=== PATIENT | female | born 1980 | race African-American/Black ===

== ENCOUNTER 2016-11-17 08:54 | Emergency (ER) | payer OTHER ==
[2016-11-17 09:10] VITALS: BMI 38.6
--- NOTE | 2016-11-17 09:40 | PDOC ---
History of Present Illness <Eduardo Tomlinson - Last Filed: 11/17/16 14:49> - General History Source: Patient Exam Limitations: No Limitations - History of Present Illness Initial Comments: 11/17/16 10:07 Patient a 35 year old female, with a significant past medical history of obesity , HTN, asthma, pneumonia (jan 2015), sleep apnea, eczema, who presents to the emergency department with headache for 1 day. Patient states that the headache is localized to the right side of the head, is throbbing, and radiates behind the right eye and has worsened today. Headache began gradually yesterday while the patient was at home and became worse today. She notes that she had no alleviation of her symptoms of advil and excedrin. She reports associated photophobia. She notes that she took her HTN medication, lisinopril and amlodipine. Currently on her menstrual period. Pt notes previous history of R sided headaches, possibly more so around her menstrual period, but that this headache was stronger than her previous headaches. She denies focal weakness or numbness, fever, chills, nausea, vomiting, SOB, dizziness, no blurry vision or visual changes but patient notes she has been rubbing her eye frequently. <Bindu Carrillo - Last Filed: 11/17/16 14:59> - General Chief Complaint: Headache Stated Complaint: SEVERE HEADACHE/DIZZINESS Time Seen by Provider: 11/17/16 09:10 Past History - Past Medical History Anemia: No Asthma: Yes Cancer: No Cardiac Disorders: No CVA: No COPD: No CHF: No Dementia: No Diabetes: No GI Disorders: No Disorders: No HTN: Yes Hypercholesterolemia: No Liver Disease: No Seizures: No Thyroid Disease: No - Surgical History Abdominal Surgery: No Appendectomy: No Cardiac Surgery: No Cholecystectomy: No Lung Surgery: No Neurologic Surgery: No Orthopedic Surgery: Yes (RIGHT SHOULDER SURGERY) - Suicide/Smoking/Psychosocial Hx Smoking Status: Yes Smoking History: Current every day smoker Have you smoked in the past 12 months: Yes Number of Cigarettes Smoked Daily: 0 Cigars Per Day: 20 Information on smoking cessation initiated: Yes 'Breaking Loose' booklet given: 01/10/16 Hx Alcohol Use: No Drug/Substance Use Hx: Yes (marijuana) Substance Use Type: None Hx Substance Use Treatment: No <Eduardo Tomlinsno - Last Filed: 11/17/16 14:49> <Bindu Carrillo - Last Filed: 11/17/16 14:59> - Past Medical History Allergies/Adverse Reactions: Allergies Allergy/AdvReac Type Severity Reaction Status Date / Time No Known Drug Allergies Allergy Verified 11/17/16 09:11 Home Medications: Ambulatory Orders Amlodipine Besylate [Norvasc -] 10 mg PO DAILY 01/10/16 Lisinopril 5 mg PO DAILY 11/17/16 Review of Systems - Review of Systems Able to Perform ROS?: Yes Comments:: 11/17/16 10:07 GENERAL/CONSTITUTIONAL: No fever or chills. No weakness. HEAD, EYES, EARS, NOSE AND THROAT: No change in vision. No ear pain or discharge. No sore throat. GASTROINTESTINAL: No nausea, vomiting, diarrhea or constipation. GENITOURINARY: No dysuria, frequency, or change in urination. CARDIOVASCULAR: No chest pain or shortness of breath. RESPIRATORY: No cough, wheezing, or hemoptysis. MUSCULOSKELETAL: No joint or muscle swelling or pain. No neck or back pain. SKIN: No rash NEUROLOGIC:+headache. No vertigo, loss of consciousness, or change in strength/ sensation. ENDOCRINE: No increased thirst. No abnormal weight change. HEMATOLOGIC/LYMPHATIC: No anemia, easy bleeding, or history of blood clots. ALLERGIC/IMMUNOLOGIC: No hives or skin allergy. <Bindu Carrillo - Last Filed: 11/17/16 14:59> *Physical Exam - Vital Signs Last Vital Signs Temp Pulse Resp BP Pulse Ox 96.4 F L 74 18 154/97 100 11/17/16 08:54 11/17/16 08:54 11/17/16 08:54 11/17/16 08:54 11/17/16 08:54 <Eduardo Tomlinson - Last Filed: 11/17/16 14:49> - Vital Signs Last Vital Signs Temp Pulse Resp BP Pulse Ox 96.4 F L 74 18 154/97 100 11/17/16 08:54 11/17/16 08:54 11/17/16 08:54 11/17/16 08:54 11/17/16 08:54 - Physical Exam Comments: 11/17/16 10:19 GENERAL: Awake, alert, and fully oriented, in no acute distress HEAD: No signs of trauma. EYES: PERRLA, EOMI, sclera anicteric, +injected sclera OD. Vision OU 20/20. No temporal ttp. No papilledema on fundoscopic exam. ENT: Auricles normal inspection, hearing grossly normal, nares patent, oropharynx clear without exudates. Moist mucosa NECK: Normal ROM, supple, no lymphadenopathy, JVD, or masses LUNGS: Breath sounds equal, clear to auscultation bilaterally. No wheezes, and no crackles HEART: Regular rate and rhythm, normal S1 and S2, no murmurs, rubs or gallops ABDOMEN: Soft, nontender, normoactive bowel sounds. No guarding, no rebound. No masses EXTREMITIES: Normal range of motion, no edema. No clubbing or cyanosis. No cords, erythema, or tenderness BACK: No midline spinal tendernes in cervial/throacic/lumbar region NEUROLOGICAL: Normal speech, cranial nerves intact, negative pronator drift, 5/ 5 strength in all 4 extremities, normal sensation to light touch in all 4 extremities, normal cerebellar exam, normal gait, normal reflexes and tone SKIN: Warm, Dry, normal turgor, no rashes or lesions noted. <Bindu Carrillo - Last Filed: 11/17/16 14:59> Heart Score/ECG Review #1 11/17/16 10:29 Normal sinus rhythm at 64 bpm Normal axis intervals No ST elevation Isolated T wave inversion in lead 3 #2 11/17/16 10:46 Repeat ECG Sinus bradycardia rate of 59 Normal axis Normal intervals no ST elevations Isolated T wave inversions in lead 3 No changes to previous ECG. <Bindu Carrillo - Last Filed: 11/17/16 14:59> ED Treatment Course - LABORATORY CBC & Chemistry Diagram: 11/17/16 09:50 11/17/16 11:25 <Eduardo Tomlinson - Last Filed: 11/17/16 14:49> - LABORATORY CBC & Chemistry Diagram: 11/17/16 09:50 11/17/16 11:25 - ADDITIONAL ORDERS Additional order review: 11/17/16 09:50 RBC 5.39 H MCV 80.7 MCHC 32.5 RDW 15.5 MPV 8.9 Neutrophils % 70.3 Lymphocytes % 19.4 D Monocytes % 5.2 Eosinophils % 4.2 D Basophils % 0.9 D <Bindu Carrillo - Last Filed: 11/17/16 14:59> Medical Decision Making - Medical Decision Making 11/17/16 10:00 36yo F hx headaches, HTN, obesity p/w 1 day of gradual onset headache. Vitals notable for HTN (pt states her BP is usually in the 180s). Exam with normal vision, and normal neurologic exam. Likely migraine given 1 sided nature, occurrence around menstrual cycle, photophobia and normal physical exam. Also on ddx is tension headache. Unlikely SAH given no sudden onset of pain, no neurological deficits. Pseudotumor also a consideration given the patient's obesity, age but she has no papilledema on exam and normal vision. -reglan/tylenol/ivf -basic labs -UPT -reassess 11/17/16 10:44 Pt c/o R sided CP s/p reglan for 1 minute that resolved on its own. Repeat EKG unchanged and non ischemic. No CP currently, will observe. 11/17/16 13:23 Erythema to R eye resolved, maybe was red previously as pt said she had been rubbing her eyes. Headache improved but still present. UPT negative. Ordered pt for more fluids, magnesium, and toradol. Will re-evaluate. 11/17/16 14:49 Pt reports headache has resolved and wishes to go home. Likely migraine. Discussed with the patient that she will need a work up for her headaches with a neurologist to ensure there is no other cause such as a mass or vascular lesion causing her headaches. Pt expresses understanding. I discussed the physical exam findings, ancillary test results and final diagnoses with the patient. I answered all of the patient's questions. The patient was satisfied with the care received and felt comfortable with the discharge plan and treatment plan. The patient will call their primary care physician within 24 hours to arrange follow-up and will return to the Emergency Department with any new, persistent or worsening symptoms. <Eduardo Tomlinson - Last Filed: 11/17/16 14:49> *DC/Admit/Observation/Transfer - Attestations Physician Attestion: 11/17/16 14:52 I, Dr. Eduardo Tomlinson MD, attest that this document has been prepared under my direction and personally reviewed by me in its entirety. I further attest, that it accurately reflects all work, treatment, procedures and medical decision -making performed by me. <Eduardo Tomlinson - Last Filed: 11/17/16 14:49> - Attestations Scribe Attestion: 11/17/16 10:07 Documentation prepared by SOHEILA Bush, acting as medical records clerk for Eduardo Tomlinson MD. <Bindu Carrillo - Last Filed: 11/17/16 14:59> Diagnosis at time of Disposition: Headache Qualifiers: Headache type: unspecified Headache chronicity pattern: unspecified pattern Intractability: not intractable Qualified Code(s): R51 - Headache - Discharge Dispostion Disposition: HOME Condition at time of disposition: Stable - Referrals Referrals: Bala Mejia MD [Primary Care Provider] - - Patient Instructions Printed Discharge Instructions: DI for Headache Additional Instructions: Follow up with your primary care doctor within 1 week. Have your primary care doctor, as we discussed, refer you to a neurologist for your headaches within 1- 2 weeks. Return to the emergency department immediately for any new or concerning symptoms or if your symptoms get worse. Thank you for coming to the Emergency Department today for your care. It was a pleasure to see you today. Please note that your evaluation is INCOMPLETE until you follow-up with your doctor.
[2016-11-17] MEDS ORDERED: ACETAMINOPHEN 500 MG TABLET (FP) PO ONE (09:44)
[2016-11-17] MEDS ORDERED: SODIUM CHLORIDE 0.9% 500 ML INFUS.BAG IV ONE ×2 (09:44→12:38)
[2016-11-17] MEDS ORDERED: METOCLOPRAMIDE HCL INJECTION 10 MG/2 ML VIAL IVPB ONE (09:45)
[2016-11-17 10:01] LABS: BASOPHIL 0.9 % (0-2.0); EOSINOPHIL 4.2 % (0-4.5); MCH 26.2 pg (25.7-33.7); MCHC 32.5 g/dl (32.0-36.0); MEAN CELL VOLUME 80.7 fl (80-96); MEAN PLT VOLUME 8.9 fl (7.5-11.1); NEUTROPHILS 70.3 % (42.8-82.8); PLATELET COUNT 233 K/MM3 (134-434); RDW 15.5 % (11.6-15.6); WHITE BLOOD COUNT 14.8 K/mm3 (4.0-10.0)
[2016-11-17] MEDS ORDERED: ACETAMINOPHEN 325 MG TABLET (FP) ONE (10:09)
[2016-11-17] MEDS ORDERED: METOCLOPRAMIDE HCL INJECTION 10 MG/2 ML VIAL ONE (10:09)
[2016-11-17 11:52] LABS: ALBUMIN 3.5 g/dl (3.4-5.0); ALK PHOS 143 U/L (45-117); ANION GAP 5 (8-16); BILIRUBIN,TOTAL 0.6 mg/dL (0.2-1.0); CALCIUM 8.6 mg/dL (8.5-10.1); CO2 27 mmol/L (21-32); CREATININE 0.9 mg/dL (0.55-1.02); GLUCOSE,RANDOM 92 mg/dL (74-106); SGOT/AST 13 U/L (15-37); SGPT/ALT 21 U/L (12-78); TOT PROT 6.7 g/dl (6.4-8.2)
[2016-11-17] MEDS ORDERED: MAGNESIUM SULF 50% (8.12 MEQ/2 ML-1 GM VIAL) IVPB ONE (12:35)
[2016-11-17] MEDS ORDERED: KETOROLAC TROMETHAMINE 15 MG/ML VIAL IVPUSH ONE (12:40)
[2016-11-17] MEDS ORDERED: MAGNESIUM SULF 50% (8.12 MEQ/2 ML-1 GM VIAL) ONE (12:54)
[2016-11-17] MEDS ORDERED: KETOROLAC TROMETHAMINE 15 MG/ML VIAL ONE (12:55)
--- NOTE | 2016-11-17 14:28 | EKG ---
Test Reason : Blood Pressure : / mmHG Vent. Rate : 064 BPM Atrial Rate : 064 BPM P-R Int : 186 ms QRS Dur : 086 ms QT Int : 396 ms P-R-T Axes : 025 038 019 degrees QTc Int : 408 ms NORMAL SINUS RHYTHM NORMAL ECG WHEN COMPARED WITH ECG OF 01-OCT-2015 16:19, VENT. RATE HAS DECREASED BY 45 BPM Confirmed by OSMIN VELÁZQUEZ MD ([id number]) on 11/17/2016 2:28:38 PM Referred By: Confirmed By:OSMIN VELÁZQUEZ MD
[2016-11-17 15:20] VITALS: BP 154/94; PULSE 75; TEMP 98.6
== END 2016-11-17 15:22 | disposition home or self-care (01) ==
LOC: JER 08:54
PROC: 3E0333Z Introduction of Anti-inflammatory into Peripheral Vein, Percutaneous Approach (ICD-10-PCS; principal; 2016-11-17)
PROC: 3E033GC Introduction of Other Therapeutic Substance into Peripheral Vein, Percutaneous Approach (ICD-10-PCS; 2016-11-17)
PROC: 3E033GC Introduction of Other Therapeutic Substance into Peripheral Vein, Percutaneous Approach (ICD-10-PCS; 2016-11-17)
PROC: 3E033GC Introduction of Other Therapeutic Substance into Peripheral Vein, Percutaneous Approach (ICD-10-PCS; 2016-11-17)
DX: R51 Headache (principal); I10 Essential (primary) hypertension; G47.30 Sleep apnea, unspecified; L30.9 Dermatitis, unspecified; E66.9 Obesity, unspecified; Z68.38 Body mass index [BMI] 38.0-38.9, adult; F17.210 Nicotine dependence, cigarettes, uncomplicated
CPT/HCPCS: 36415; 80053; 84703; 85025; 93005; 93010; 99282-25

== ENCOUNTER 2017-01-23 09:49 | Emergency (ER) | payer OTHER ==
[2017-01-23 10:03] VITALS: BP 143/104; PULSE 83; TEMP 98.2; BMI 38.0
--- NOTE | 2017-01-23 10:36 | PDOC ---
History of Present Illness - General Chief Complaint: Vaginal Bleeding Stated Complaint: VAGINAL BLEEDING Time Seen by Provider: 01/23/17 10:31 History Source: Patient - History of Present Illness Timing/Duration: reports: constant Quality: reports: cramping Past History - Past Medical History Allergies/Adverse Reactions: Allergies Allergy/AdvReac Type Severity Reaction Status Date / Time No Known Drug Allergies Allergy Verified 01/23/17 10:03 Home Medications: Ambulatory Orders Amlodipine Besylate [Norvasc -] 10 mg PO DAILY 01/10/16 Lisinopril 5 mg PO DAILY 11/17/16 Anemia: No Asthma: Yes Cancer: No Cardiac Disorders: No CVA: No COPD: No CHF: No DVT: No Dementia: No Diabetes: No GI Disorders: No Disorders: No HTN: Yes Hypercholesterolemia: No Liver Disease: No Seizures: No Thyroid Disease: No - Surgical History Abdominal Surgery: No Appendectomy: No Cardiac Surgery: No Cholecystectomy: No Lung Surgery: No Neurologic Surgery: No Orthopedic Surgery: Yes (RIGHT SHOULDER SURGERY) - Suicide/Smoking/Psychosocial Hx Smoking Status: Yes Smoking History: Never smoked Have you smoked in the past 12 months: Yes Number of Cigarettes Smoked Daily: 0 Cigars Per Day: 20 Information on smoking cessation initiated: No 'Breaking Loose' booklet given: 01/10/16 Hx Alcohol Use: No Drug/Substance Use Hx: No Substance Use Type: None Hx Substance Use Treatment: No Review of Systems - Review of Systems Constitutional: No: Chills, Fever ABD/GI: Yes: Abdominal cramping. No: Nausea, Vomiting : No: Dysuria, Discharge *Physical Exam - Vital Signs Last Vital Signs Temp Pulse Resp BP Pulse Ox 98.2 F 83 19 143/104 100 01/23/17 10:01 01/23/17 10:01 01/23/17 10:01 01/23/17 10:01 01/23/17 10:01 - Physical Exam General Appearance: Yes: Appropriately Dressed. No: Apparent Distress HEENT: positive: Normal Voice Neck: positive: Supple Respiratory/Chest: negative: Respiratory Distress Female Pelvic Exam: positive: cervical os closed, normal adnexa, vaginal bleeding (trace vag bleed). negative: CMT Gastrointestinal/Abdominal: positive: Tender (to mid suprapubic area, NT over mcburney), Soft Integumentary: positive: Dry, Warm Neurologic: positive: Fully Oriented, Alert, Normal Mood/Affect ED Treatment Course - LABORATORY CBC & Chemistry Diagram: 01/23/17 10:42 Medical Decision Making - Medical Decision Making 01/23/17 10:34 36-year-old female, morbidly obese, hypertension, here with irregular vag bleed. Patient states she got her normal menses 12 days ago, but instead of lasting the usual 5 days, she has continued to bleed for 12 days now. Reports that she is not bleeding heavily and using ~1 pad/day currently. Also reports some pain in her vagina as per patient. No dizziness, weakness, nausea, vomiting, fever or chills. No history of similar complaints in the past. Not on control. States she does not think she is but has not checked a home test See exam Irreg vag bleed Well jeff and stable in ED R/o preg, ? fibroid in the past -cbc -upreg -anticipate dc w/ timber incisor operator f/u for further eval 01/23/17 11:45 Uprg neg. White count 16 of unclear etiology as no sign of infection on exam and non-tender over McBurney's. Case discussed with Dr. Rea who recommends sending off a UA and if negative, would not proceed with further intervention at this time as pt well jeff and afebrile w/ no s/o infection. Will give strict return precautions on discharge 01/23/17 12:35 Ua neg for infection. Pt remains well jeff and in NAD. Will dc w/ strict return precautions and WELL LOGGING MUD ANALYSIS CAPTAIN f/u *DC/Admit/Observation/Transfer Diagnosis at time of Disposition: DUB (dysfunctional uterine bleeding) - Discharge Dispostion Disposition: HOME Condition at time of disposition: Good - Referrals Referrals: Bala Mejia MD [Primary Care Provider] - - Patient Instructions Printed Discharge Instructions: DI for Vaginal Bleeding Additional Instructions: You were not today and your blood count was normal. Please follow-up with your WELL LOGGING MUD ANALYSIS CAPTAIN for further evaluation If symptoms worsen, return to ED - Post Discharge Activity
[2017-01-23] MEDS ORDERED: IBUPROFEN 400 MG TABLET (FP) PO ONE ×2 (10:45→10:51)
[2017-01-23 10:57] LABS: BASOPHIL 0.8 % (0-2.0); EOSINOPHIL 3.7 % (0-4.5); MCH 26.2 pg (25.7-33.7); MCHC 32.1 g/dl (32.0-36.0); MEAN CELL VOLUME 81.6 fl (80-96); MEAN PLT VOLUME 8.7 fl (7.5-11.1); PLATELET COUNT 245 K/MM3 (134-434); RDW 14.9 % (11.6-15.6); WHITE BLOOD COUNT 16.5 K/mm3 (4.0-10.0)
[2017-01-23 12:26] LABS: URINE APPEARANCE CLEAR; URINE BILIRUBIN NEGATIVE (NEGATIVE); URINE BLOOD 1+ (NEGATIVE); URINE COLOR LTYELLOW; URINE GLUCOSE (UA) NEGATIVE (NEGATIVE); URINE KETONE NEGATIVE (NEGATIVE); URINE NITRITE NEGATIVE (NEGATIVE); URINE PROTEIN NEGATIVE (NEGATIVE); URINE UROBILINOGEN NEGATIVE mg/dL (0.2-1.0)
[2017-01-23 12:29] LABS: URINE RBC <1 /hpf (0-3); URINE WBC NONE SEEN /hpf (3-5)
[2017-01-23 12:30] LABS: URINE MUCUS RARE
[2017-01-23 17:51] LABS: URINE LEUK ESTERASE Negative (NEGATIVE)
== END 2017-01-23 13:07 | disposition home or self-care (01) ==
LOC: JER 09:49
DX: N93.8 Other specified abnormal uterine and vaginal bleeding (principal); I10 Essential (primary) hypertension; E66.9 Obesity, unspecified; Z68.38 Body mass index [BMI] 38.0-38.9, adult
CPT/HCPCS: 36415; 81003; 81015; 84703; 85025; 99284-25

== ENCOUNTER 2017-04-26 22:29 | Emergency (ER) | payer OTHER ==
[2017-04-26 22:45] VITALS: BP 151/80; PULSE 88; TEMP 97.7; BMI 38.9
--- NOTE | 2017-04-26 23:50 | PDOC ---
History of Present Illness - General History Source: Patient Exam Limitations: No Limitations - History of Present Illness Initial Comments: 04/27/17 00:15 The patient is a 36 year old female, with a significant past medical history of HTN (recently restarted her medication) and asthma, who presents to the emergency department with body aches, generalized weakness, headache, dizziness , abdominal pain, nausea and vomiting. She reports that she doesn't exercise routinely but has started again for the past 3 days and notes that her body aches may be due to the recent exercises. She reports that she was eating multiple different types of lunches at and event earlier today and thats when she her abdominal pain started and she had her emesis episode. She does note that she has been taking a detox tea which has caused her stool to be soft. She reports that her headache ranges from mild to moderate, without radiation. She notes that light exacerbates her pain. The patient denies chest pain, shortness of breath, fever, chills, and constipation. Denies dysuria, frequency, urgency and hematuria. Allergies: None Past surgical history: RIGHT SHOULDER SURGERY Social history: Black and Mild cigars, alcohol use. <Diallo Mazariegos - Last Filed: 04/27/17 00:15> - General History Source: Patient Exam Limitations: No Limitations <Maggy Zamorano - Last Filed: 04/27/17 03:18> - General Chief Complaint: Lightheaded Stated Complaint: DIZZINESS Time Seen by Provider: 04/26/17 23:49 Past History <Diallo Mazariegos - Last Filed: 04/27/17 00:15> - Past Medical History Anemia: No Asthma: Yes Cancer: No Cardiac Disorders: No CVA: No COPD: No CHF: No DVT: No Dementia: No Diabetes: No GI Disorders: No Disorders: No HTN: Yes Hypercholesterolemia: No Liver Disease: No Seizures: No Thyroid Disease: No - Surgical History Abdominal Surgery: No Appendectomy: No Cardiac Surgery: No Cholecystectomy: No Lung Surgery: No Neurologic Surgery: No Orthopedic Surgery: Yes (RIGHT SHOULDER SURGERY) - Reproductive History (#): 2 Para: 1 Therapeutic (s) & number: Yes - Suicide/Smoking/Psychosocial Hx Smoking Status: Yes Smoking History: Current every day smoker Have you smoked in the past 12 months: No Number of Cigarettes Smoked Daily: 3 Cigars Per Day: 20 Information on smoking cessation initiated: No 'Breaking Loose' booklet given: 01/10/16 Hx Alcohol Use: Yes Drug/Substance Use Hx: No Substance Use Type: None Hx Substance Use Treatment: No <Maggy Zamorano - Last Filed: 04/27/17 03:18> - Past Medical History Allergies/Adverse Reactions: Allergies Allergy/AdvReac Type Severity Reaction Status Date / Time No Known Drug Allergies Allergy Verified 01/23/17 10:03 Home Medications: Ambulatory Orders Amlodipine Besylate [Norvasc -] 10 mg PO DAILY 01/10/16 Lisinopril 5 mg PO DAILY 11/17/16 Butalb/Acetaminophen/Caffeine [Fioricet 50-300-40 mg Capsule] 1 each PO BID PRN #14 capsule 04/27/17 Ondansetron HCl [Zofran] 4 mg PO BID PRN #14 tablet 04/27/17 Review of Systems - Review of Systems Able to Perform ROS?: Yes Comments:: 04/27/17 00:15 GENERAL/CONSTITUTIONAL: (+) Generalized weakness, body aches. No fever or chills. HEAD, EYES, EARS, NOSE AND THROAT: No change in vision. No ear pain or discharge. No sore throat. CARDIOVASCULAR: No chest pain or shortness of breath RESPIRATORY: No cough, wheezing, or hemoptysis. GASTROINTESTINAL: (+) Abdominal pain, nausea and vomiting. No diarrhea or constipation. GENITOURINARY: No dysuria, frequency, or change in urination. MUSCULOSKELETAL: No joint or muscle swelling or pain. No neck or back pain. SKIN: No rash NEUROLOGIC: (+) headache, vertigo. No loss of consciousness, or change in strength/sensation. ENDOCRINE: No increased thirst. No abnormal weight change HEMATOLOGIC/LYMPHATIC: No anemia, easy bleeding, or history of blood clots. ALLERGIC/IMMUNOLOGIC: No hives or skin allergy. <Diallo Mazariegos - Last Filed: 04/27/17 00:15> *Physical Exam - Vital Signs Last Vital Signs Temp Pulse Resp BP Pulse Ox 97.7 F 88 18 151/80 99 04/26/17 22:35 04/26/17 22:35 04/26/17 22:35 04/26/17 22:35 04/26/17 22:35 - Physical Exam Comments: 04/27/17 00:17 GENERAL: Awake, alert, and fully oriented, in no acute distress. (+) Morbidly obese. HEAD: No signs of trauma, normocephalic, atraumatic EYES: PERRLA, EOMI, sclera anicteric, conjunctiva clear ENT: Auricles normal inspection, hearing grossly normal, nares patent, oropharynx clear without exudates. Moist mucosa NECK: Normal ROM, supple, no lymphadenopathy, JVD, or masses LUNGS: No distress, speaks full sentences, clear to auscultation bilaterally HEART: Regular rate and rhythm, normal S1 and S2, no murmurs, rubs or gallops, peripheral pulses normal and equal bilaterally. ABDOMEN: (+) Epigastirc tenderness. Soft, normoactive bowel sounds. No guarding , no rebound. No masses EXTREMITIES : Normal inspection, Normal range of motion, no edema. No clubbing or cyanosis. NEUROLOGICAL: Cranial nerves II through XII grossly intact. Normal speech, normal gait, no focal sensorimotor deficits SKIN: Warm, Dry, normal turgor, no rashes or lesions noted <Diallo Mazariegos - Last Filed: 04/27/17 00:15> - Vital Signs Last Vital Signs Temp Pulse Resp BP Pulse Ox 97.7 F 88 18 151/80 99 04/26/17 22:35 04/26/17 22:35 04/26/17 22:35 04/26/17 22:35 04/26/17 22:35 <Maggy Zamorano - Last Filed: 04/27/17 03:18> ED Treatment Course - LABORATORY CBC & Chemistry Diagram: 04/27/17 00:24 04/27/17 00:24 <Maggy Zamorano - Last Filed: 04/27/17 03:18> Medical Decision Making - Medical Decision Making 04/27/17 01:42 Ms Regalado is a 36 yo F presenting to the ER with a complaint of : 1) nausea and vomiting which began 3 days ago after eating at a lunch bar, no other ill contacts. Pt had fish but states it was well cooked Pt states no one else that ate there was ill. No diarrhea. Pt has noted epigastric pain. No fevers or chills 2) Headache: which has been present constantly for > 3 days, similar to headache she had a few months ago 3) Body aches: EKG: SR rate of 81 bpm, [place] nml, No ST elevations or depressions, st depression III Laboratory Tests 04/27/17 04/27/17 00:24 00:24 WBC 14.2 H Hgb 13.3 Hct 40.3 Plt Count 242 Sodium 142 Potassium 4.1 Chloride 110 H Carbon Dioxide 25 BUN 13 Creatinine 0.8 Total Bilirubin 0.3 D AST 35 ALT 41 Total Amylase 72 Lipase 200 04/27/17 01:42 04/27/17 01:46 04/27/17 01:53 04/27/17 02:02 Pt states headache has improved nausea has improved but she would not eat now Will give toradol Will re assess 04/27/17 02:38 04/27/17 02:38 Laboratory Tests 04/27/17 02:20 Urine Blood Negative Urine Nitrite Negative Ur Leukocyte Esterase Negative 04/27/17 03:07 Laboratory Tests 04/27/17 00:24 Creatine Kinase Index 0.1 CK-MB (CK-2) < 1.000 CK elevated Pt has been doing excessive exercise recently Pt hydrated while in the ER CR normal Will ask pt to limit excessive exercise Take excedrine migraine for headache Pt can take zofran from nausea Follow up with PMD return to the ER for any other concerns or complaints Clinical impression: nausea, gastritis, initial presentation Headache, initial presentation <Maggy Zamorano - Last Filed: 04/27/17 03:18> *DC/Admit/Observation/Transfer - Attestations Scribe Attestion: 04/27/17 00:18 Documentation prepared by Diallo Mazariegos, acting as medical record specialist for Maggy Zamorano MD <Diallo Mazariegos - Last Filed: 04/27/17 00:15> - Discharge Dispostion Admit: No <Maggy aZmorano - Last Filed: 04/27/17 03:18> Diagnosis at time of Disposition: Nausea & vomiting Qualifiers: Vomiting type: unspecified Vomiting Intractability: non-intractable Qualified Code(s): R11.2 - Nausea with vomiting, unspecified - Discharge Dispostion Disposition: HOME Condition at time of disposition: Stable - Referrals Referrals: Bala Mejia MD [Primary Care Provider] - - Patient Instructions Printed Discharge Instructions: DI for Nausea -- Adult, DI for Headache Additional Instructions: Ms regalado Thanks for coming in to the ER today Please take Zofran if you feel nauseous Please take excedrin Migraine for headache (per label instructions) You can take Fiorecet for more severe headaches If you have fevers, headache which is not controlled by medications, nausea, vomiting which will not stop, weakness, confusion, please return to the ER for re evaluation. - Post Discharge Activity
[2017-04-27] MEDS ORDERED: SODIUM CHLORIDE 1,000 ML IV STA (00:05)
[2017-04-27] MEDS ORDERED: METOCLOPRAMIDE HCL INJECTION 10 MG/2 ML VIAL IVPUSH ONE (00:06)
[2017-04-27] MEDS ORDERED: FAMOTIDINE 20 MG/50 ML IVPB 20 MG/50 ML MG IVPB ONE ×2 (00:06→00:12)
[2017-04-27] MEDS ORDERED: METOCLOPRAMIDE HCL INJECTION 10 MG/2 ML VIAL ONE (00:10)
[2017-04-27 00:28] LABS: BASO % 1.2 % (0-2.0); EOS % 4.9 % (0-4.5); HEMATOCRIT 40.3 % (32.4-45.2); HEMOGLOBIN 13.3 GM/dL (10.7-15.3); LYMPH % 23.5 % (8-40); MCH 26.7 pg (25.7-33.7); MEAN PLT VOLUME 9.2 fl (7.5-11.1); MONO % 5.8 % (3.8-10.2); NEUT % 64.6 % (42.8-82.8); PLATELET COUNT 242 K/MM3 (134-434); RBC 4.97 M/mm3 (3.60-5.2); RDW 15.2 % (11.6-15.6); WHITE BLOOD COUNT 14.2 K/mm3 (4.0-10.0)
[2017-04-27 00:55] LABS: ALBUMIN 3.3 g/dl (3.4-5.0); ALK PHOS 144 U/L (45-117); AMYLASE 72 U/L (25-115); ANION GAP 7 (8-16); BILIRUBIN,TOTAL 0.3 mg/dL (0.2-1.0); BLOOD UREA NITROGEN 13 mg/dL (7-18); CALCIUM 8.7 mg/dL (8.5-10.1); CHLORIDE 110 mmol/L (98-107); CO2 25 mmol/L (21-32); CREATININE 0.8 mg/dL (0.55-1.02); GLUCOSE,RANDOM 98 mg/dL (74-106); LIPASE 200 U/L (73-393); POTASSIUM 4.1 mmol/L (3.5-5.1); SGOT/AST 35 U/L (15-37); SGPT/ALT 41 U/L (12-78); SODIUM 142 mmol/L (136-145); TOT PROT 6.6 g/dl (6.4-8.2)
[2017-04-27] MEDS ORDERED: KETOROLAC TROMETHAMINE 30 MG/1 ML VIAL IVPUSH ONE (02:02)
[2017-04-27 02:32] LABS: URINE APPEARANCE SLCLOUDY; URINE BILIRUBIN NEGATIVE (NEGATIVE); URINE BLOOD NEGATIVE (NEGATIVE); URINE COLOR LTYELLOW; URINE GLUCOSE (UA) NEGATIVE (NEGATIVE); URINE KETONE NEGATIVE (NEGATIVE); URINE LEUK ESTERASE NEGATIVE (NEGATIVE); URINE NITRITE NEGATIVE (NEGATIVE); URINE PROTEIN NEGATIVE (NEGATIVE); URINE UROBILINOGEN NEGATIVE mg/dL (0.2-1.0)
[2017-04-27] MEDS ORDERED: KETOROLAC TROMETHAMINE 30 MG/1 ML VIAL ONE (02:47)
--- NOTE | 2017-04-27 14:38 | EKG ---
Test Reason : Blood Pressure : / mmHG Vent. Rate : 081 BPM Atrial Rate : 081 BPM P-R Int : 178 ms QRS Dur : 080 ms QT Int : 374 ms P-R-T Axes : 052 043 029 degrees QTc Int : 434 ms NORMAL SINUS RHYTHM POSSIBLE LEFT ATRIAL ENLARGEMENT BORDERLINE ECG WHEN COMPARED WITH ECG OF 17-NOV-2016 09:24, NO SIGNIFICANT CHANGE WAS FOUND Confirmed by OSMIN VELÁZQUEZ MD ([id number]) on 04/27/2017 2:37:57 PM Referred By: Confirmed By:OSMIN VELÁZQUEZ MD
== END 2017-04-27 03:19 | disposition home or self-care (01) ==
LOC: JER 22:29
PROC: 3E033GC Introduction of Other Therapeutic Substance into Peripheral Vein, Percutaneous Approach (ICD-10-PCS; principal; 2017-04-26)
PROC: 3E0333Z Introduction of Anti-inflammatory into Peripheral Vein, Percutaneous Approach (ICD-10-PCS; 2017-04-26)
PROC: 3E033GC Introduction of Other Therapeutic Substance into Peripheral Vein, Percutaneous Approach (ICD-10-PCS; 2017-04-26)
DX: R51 Headache (principal); R11.2 Nausea with vomiting, unspecified
CPT/HCPCS: 36415; 70450-TC; 80053; 81003; 82150; 82550; 82553; 83690; 84484; 84703; 85025; 87086; 93005; 93010; 99282-25

== ENCOUNTER 2017-05-16 08:40 | Emergency (ER) | payer OTHER ==
[2017-05-16 08:48] VITALS: BP 141/70; PULSE 89; TEMP 98.2; BMI 38.6
--- NOTE | 2017-05-16 09:41 | PDOC ---
History of Present Illness - General Chief Complaint: Eye Problem Stated Complaint: EYE PAIN Time Seen by Provider: 05/16/17 09:34 History Source: Patient Exam Limitations: No Limitations - History of Present Illness Initial Comments: 05/16/17 09:38 CHIEF COMPLAINT: Bilateral itchy watery eyes HISTORY OF PRESENT ILLNESS: She currently on no medication presents with bilateral watery itchy eyes. Patient denies any new lotions or detergents, no new makeup. No new mascara. Patient reports using a drop from her stepfather, name of medication is unknown. REVIEW OF SYSTEMS: GENERAL/CONSTITUTIONAL: No fever or chills. No weakness. No weight change. HEAD, EYES, EARS, NOSE AND THROAT: No change in vision. Yellow drainage from bilateral eyes this morning. No ear pain or discharge. No sore throat. RESPIRATORY: No cough, wheezing, or hemoptysis. SKIN : No rash or easy bruising. NEUROLOGIC: No headache, vertigo, loss of consciousness, or loss of sensation. HEMATOLOGIC/LYMPHATIC: No lymphadenopathy ALLERGIC/IMMUNOLOGIC: No hives or skin allergy. No latex allergy. PHYSICAL EXAM: GENERAL: The patient is awake, alert, and fully oriented, in no acute distress. HEAD: Normal with no signs of trauma. EYES: Pupils equal, round and reactive to light, extraocular movements intact, sclera anicteric, conjunctiva not injected, after fluorescein staining, no corneal abrasion noted. ENT: Ears normal, nares patent, oropharynx clear without exudates. Moist mucous membranes. NECK: Normal range of motion, supple without lymphadenopathy, JVD, or masses. LUNGS: Breath sounds equal, clear to auscultation bilaterally. No wheezes, and no crackles. NEUROLOGICAL: Cranial nerves II through XII grossly intact. Normal speech, normal gait. SKIN: No erythema no facial edema. Warm, Dry, normal turgor, no rashes or lesions noted. 05/16/17 09:49 05/16/17 09:52 Past History - Past Medical History Allergies/Adverse Reactions: Allergies Allergy/AdvReac Type Severity Reaction Status Date / Time No Known Drug Allergies Allergy Verified 05/16/17 08:48 Home Medications: Ambulatory Orders Amlodipine Besylate [Norvasc -] 10 mg PO DAILY 01/10/16 Lisinopril 5 mg PO DAILY 11/17/16 Butalb/Acetaminophen/Caffeine [Fioricet 50-300-40 mg Capsule] 1 each PO BID PRN #14 capsule 04/27/17 Ondansetron HCl [Zofran] 4 mg PO BID PRN #14 tablet 04/27/17 Ketotifen Fumarate [Zaditor] 1 drop OU BID #1 bottle 05/16/17 Polymyxin B Sulfate/Tmp [Polytrim Opthalmic Solution -] 1 drop OU Q6H #1 bottle 05/16/17 Anemia: No Asthma: Yes Cancer: No Cardiac Disorders: No CVA: No COPD: No CHF: No DVT: No Dementia: No Diabetes: No GI Disorders: No Disorders: No HTN: Yes Hypercholesterolemia: No Liver Disease: No Seizures: No Thyroid Disease: No - Surgical History Abdominal Surgery: No Appendectomy: No Cardiac Surgery: No Cholecystectomy: No Lung Surgery: No Neurologic Surgery: No Orthopedic Surgery: Yes (RIGHT SHOULDER SURGERY) - Reproductive History (#): 2 Para: 1 Therapeutic (s) & number: Yes - Suicide/Smoking/Psychosocial Hx Smoking Status: Yes Smoking History: Never smoked Have you smoked in the past 12 months: No Number of Cigarettes Smoked Daily: 3 If you are a former smoker, when did you quit?: unk Cigars Per Day: 20 Information on smoking cessation initiated: No 'Breaking Loose' booklet given: 01/10/16 Hx Alcohol Use: No Drug/Substance Use Hx: No Substance Use Type: None Hx Substance Use Treatment: No *Physical Exam - Vital Signs Last Vital Signs Temp Pulse Resp BP Pulse Ox 98.2 F 89 18 141/70 99 05/16/17 08:46 05/16/17 08:46 05/16/17 08:46 05/16/17 08:46 05/16/17 08:46 Medical Decision Making - Medical Decision Making 05/16/17 09:53 A/P: Patient with itchy, tearing, bilateral eyes. Allergic conjunctivitis will DC patient on Polytrim and Zaditor, follow-up with ophthalmology *DC/Admit/Observation/Transfer Diagnosis at time of Disposition: Allergic conjunctivitis Qualifiers: Laterality: bilateral Qualified Code(s): H10.13 - Acute atopic conjunctivitis, bilateral - Discharge Dispostion Disposition: HOME Condition at time of disposition: Stable Admit: No - Prescriptions Prescriptions: Ketotifen Fumarate [Zaditor] 1 drop OU BID #1 bottle Polymyxin B Sulfate/Tmp [Polytrim Opthalmic Solution -] 1 drop OU Q6H #1 bottle - Referrals Referrals: Bhavin Cristobal [Staff Physician] - - Patient Instructions Additional Instructions: * Refrain from touching or scratching eye * Please wash hands frequently * Please followup with his primary care doctor in 2 days if symptoms persist * Medication as prescribed * Warm compresses to eye * If increased redness, swelling, pain to the eye please follow up with primary care doctor immediately or return to emergency room - Post Discharge Activity Forms/Work/School Notes: Back to Work
[2017-05-16] MEDS ORDERED: FLUORESCEIN NA 1 EA STRIP ONE (09:43)
== END 2017-05-16 10:00 | disposition home or self-care (01) ==
LOC: JERFT 08:40
DX: H10.13 Acute atopic conjunctivitis, bilateral (principal)
CPT/HCPCS: 99281-25

== ENCOUNTER 2017-07-17 12:36 | Emergency (ER) | payer SELFPAY ==
[2017-07-17 12:52] VITALS: BP 156/102; PULSE 82; TEMP 98.7; BMI 38.9
--- NOTE | 2017-07-17 13:53 | PDOC ---
History of Present Illness - General History Source: Patient Exam Limitations: No Limitations - History of Present Illness Initial Comments: 07/17/17 14:15 The patient is a 37 year old female with a significant PMH of eczema and hypertension who presents to the emergency department with a facial rash for 3 weeks. The patient reports that her face rash is itchy and dry . she states that she had been using steroid cream for her face rash with no apparent relief. The patient also reports washing her face at least 7 times a day and using astringents on her face. The patient reports that she went to [facility] 2 weeks ago by which she was prescribed prednisone for 5 days. The patient states that on completion of her medication she experienced moderate improvement and then worsening of her facial rash. The patient reports that she has an upcoming dermatology appointment in August. The patient denies any other symptoms. She denies any numbness weakness or tingling sensation. She denies chest pain, shortness of breath, headache and dizziness. She denies fever, chills, nausea, vomit, diarrhea , constipation or urinary symptoms. The patient denies any other complaints. <Julieth Huerta - Last Filed: 07/17/17 14:15> - General History Source: Patient Exam Limitations: No Limitations <Arnol Murguia - Last Filed: 07/17/17 16:46> - General Chief Complaint: Rash Stated Complaint: SWELLING TO FACE Time Seen by Provider: 07/17/17 13:52 Past History <Julieth Huerta - Last Filed: 07/17/17 14:15> - Past Medical History Anemia: No Asthma: Yes Cancer: No Cardiac Disorders: No CVA: No COPD: No CHF: No DVT: No Dementia: No Diabetes: No GI Disorders: No Disorders: No HTN: Yes Hypercholesterolemia: No Liver Disease: No Seizures: No Thyroid Disease: No - Surgical History Abdominal Surgery: No Appendectomy: No Cardiac Surgery: No Cholecystectomy: No Lung Surgery: No Neurologic Surgery: No Orthopedic Surgery: Yes (RIGHT SHOULDER SURGERY) - Reproductive History (#): 2 Para: 1 Therapeutic (s) & number: Yes - Suicide/Smoking/Psychosocial Hx Smoking Status: Yes Smoking History: Never smoked Have you smoked in the past 12 months: Yes Number of Cigarettes Smoked Daily: 2 If you are a former smoker, when did you quit?: unk Cigars Per Day: 20 Information on smoking cessation initiated: No 'Breaking Loose' booklet given: 01/10/16 Hx Alcohol Use: No Drug/Substance Use Hx: No Substance Use Type: None Hx Substance Use Treatment: No <Bruno Murguia - Last Filed: 07/17/17 16:46> - Past Medical History Allergies/Adverse Reactions: Allergies Allergy/AdvReac Type Severity Reaction Status Date / Time No Known Drug Allergies Allergy Verified 07/17/17 12:49 Home Medications: Ambulatory Orders Amlodipine Besylate [Norvasc -] 10 mg PO DAILY 01/10/16 Lisinopril 5 mg PO DAILY 11/17/16 Hydrocortisone 1% Ointment [Hytone 1% Ointment -] 1 applic TP BID #1 tube predniSONE [Deltasone -] 40 mg PO DAILY #7 tablet 07/17/17 Review of Systems - Review of Systems Able to Perform ROS?: Yes Comments:: 07/17/17 14:15 GENERAL/CONSTITUTIONAL: No fever or chills. No weakness. HEAD, EYES, EARS, NOSE AND THROAT: No change in vision. No ear pain or discharge. No sore throat. CARDIOVASCULAR: No chest pain or shortness of breath. RESPIRATORY: No cough, wheezing, or hemoptysis. GASTROINTESTINAL: No nausea, vomiting, diarrhea or constipation. GENITOURINARY: No dysuria, frequency, or change in urination. MUSCULOSKELETAL: No joint or muscle swelling or pain. No neck or back pain. SKIN: (+)face rash NEUROLOGIC: No headache, vertigo, loss of consciousness, or change in strength/ sensation. ENDOCRINE: No increased thirst. No abnormal weight change. HEMATOLOGIC/LYMPHATIC: No anemia, easy bleeding, or history of blood clots. ALLERGIC/IMMUNOLOGIC: No hives or skin allergy. <Julieth Huerta - Last Filed: 07/17/17 14:15> *Physical Exam - Vital Signs Last Vital Signs Temp Pulse Resp BP Pulse Ox 98.7 F 82 19 156/102 99 07/17/17 12:49 07/17/17 12:49 07/17/17 12:49 07/17/17 12:49 07/17/17 12:49 - Physical Exam Comments: 07/17/17 14:15 GENERAL: Awake, alert, and fully oriented, in no acute distress HEAD: No signs of trauma EYES: PERRLA, EOMI, sclera anicteric, conjunctiva clear ENT: Auricles normal inspection, hearing grossly normal, nares patent, oropharynx clear without exudates. Moist mucosa NECK: Normal ROM, supple, no lymphadenopathy, JVD, or masses LUNGS: Breath sounds equal, clear to auscultation bilaterally. No wheezes, and no crackles HEART: Regular rate and rhythm, normal S1 and S2, no murmurs, rubs or gallops ABDOMEN: Soft, nontender, normoactive bowel sounds. No guarding, no rebound. No masses EXTREMITIES: Normal range of motion, no edema. No clubbing or cyanosis. No cords, erythema, or tenderness NEUROLOGICAL: Cranial nerves II through XII grossly intact. Normal speech, normal gait SKIN: (+)papular face rash on entire face. Dryness, Warm, non scaly, normal turgor, no lesions noted, no plaque. <Julieth Huerta - Last Filed: 07/17/17 14:15> - Vital Signs Last Vital Signs Temp Pulse Resp BP Pulse Ox 98.7 F 82 19 156/102 99 07/17/17 12:49 07/17/17 12:49 07/17/17 12:49 07/17/17 12:49 07/17/17 12:49 <Arnol Murguia - Last Filed: 07/17/17 16:46> Moderate Sedation - Procedure Monitoring Vital Signs: Vital Signs Temp Pulse Resp BP Pulse Ox 98.7 F 82 19 156/102 99 07/17/17 12:49 07/17/17 12:49 07/17/17 12:49 07/17/17 12:49 07/17/17 12:49 <Julieth Huerta - Last Filed: 07/17/17 14:15> - Procedure Monitoring Vital Signs: Vital Signs Temp Pulse Resp BP Pulse Ox 98.7 F 82 19 156/102 99 07/17/17 12:49 07/17/17 12:49 07/17/17 12:49 07/17/17 12:49 07/17/17 12:49 <Arnol Murguia - Last Filed: 07/17/17 16:46> Medical Decision Making - Medical Decision Making 07/17/17 14:15 The patient is a 37 year old female with a significant PMH of eczema and hypertension who presents to the emergency department with a facial rash for 3 weeks consistent with eczema. We will prescribe steroids. Follow-up with dermatology I discussed the physical exam findings, ancillary test results and final diagnoses with the patient. I answered all of the patient's questions. The patient was satisfied with the care received and felt comfortable with the discharge plan and treatment plan. The Patient agrees to follow up with the primary care physician within 24-72 hours. <Arnol Murguia - Last Filed: 07/17/17 16:46> *DC/Admit/Observation/Transfer - Attestations Scribe Attestion: 07/17/17 14:16 Documentation prepared by Julieth Huerta, acting as medical instrument cable fabricator for David Carlson MD. <Julieth Huerta - Last Filed: 07/17/17 14:15> <Arnol Murguia - Last Filed: 07/17/17 16:46> Diagnosis at time of Disposition: Eczema Qualifiers: Eczema type: unspecified Qualified Code(s): L30.9 - Dermatitis, unspecified - Discharge Dispostion Disposition: HOME Condition at time of disposition: Stable - Prescriptions Prescriptions: Hydrocortisone 1% Ointment [Hytone 1% Ointment -] 1 applic TP BID #1 tube predniSONE [Deltasone -] 40 mg PO DAILY #7 tablet - Referrals Referrals: Bala Mejia MD [Primary Care Provider] - - Patient Instructions Printed Discharge Instructions: DI for Atopic Dermatitis - Adult Additional Instructions: Your Discharge Instructions: You must call primary care physician within 24 hours to arrange follow-up. Return to the Emergency Department with any new, persistent or worsening symptoms, for fever, chills, SOB, dizziness or any other concerning changes that may occur. Discontinue frequent washing of the face, and use of astringent. Take Claritin or Zyrtec in the daytime for itching. Follow up with the [facility]. - Post Discharge Activity
== END 2017-07-17 14:18 | disposition home or self-care (01) ==
LOC: JERFT 12:36
DX: L30.9 Dermatitis, unspecified (principal); I10 Essential (primary) hypertension
CPT/HCPCS: 99281-25

== ENCOUNTER 2018-06-18 07:52 | Emergency (ER) | payer OTHER ==
[2018-06-18 08:17] VITALS: TEMP 98.2; BMI 39.6
--- NOTE | 2018-06-18 08:19 | PDOC ---
History of Present Illness - General Chief Complaint: Shortness of Breath Stated Complaint: Shortness of Breath Time Seen by Provider: 06/18/18 08:12 History Source: Patient Exam Limitations: No Limitations Past History - Travel Traveled outside of the country in the last 30 days: No Close contact w/someone who was outside of country & ill: No - Past Medical History Allergies/Adverse Reactions: Allergies Allergy/AdvReac Type Severity Reaction Status Date / Time No Known Drug Allergies Allergy Verified 07/17/17 12:49 Home Medications: Ambulatory Orders Amlodipine Besylate [Norvasc -] 10 mg PO DAILY 01/10/16 Lisinopril 5 mg PO DAILY 11/17/16 Albuterol 0.083% Nebulizer Lorena [Ventolin 0.083% Nebulizer Soln -] 1 neb NEB Q4H #20 vial 06/18/18 Azithromycin [Zithromax 250mg Tablets -] 250 mg PO UTDICT #6 tab 06/18/18 Loratadine [Allergy Relief] 10 mg PO DAILY 06/18/18 Methylprednisolone [Medrol Dose Nikolai] 4 mg PO ASDIR #21 tablet 06/18/18 Anemia: No Asthma: Yes Cancer: No Cardiac Disorders: No CVA: No COPD: No CHF: No DVT: No Dementia: No Diabetes: No GI Disorders: No Disorders: No HTN: Yes Hypercholesterolemia: No Liver Disease: No Seizures: No Thyroid Disease: No - Surgical History Abdominal Surgery: No Appendectomy: No Cardiac Surgery: No Cholecystectomy: No Lung Surgery: No Neurologic Surgery: No Orthopedic Surgery: Yes (RIGHT SHOULDER SURGERY) - Reproductive History (#): 2 Para: 1 Therapeutic (s) & number: Yes - Immunization History Immunization Up to Date: Yes - Suicide/Smoking/Psychosocial Hx Smoking Status: Yes Smoking History: Never smoked Have you smoked in the past 12 months: Yes Number of Cigarettes Smoked Daily: 2 If you are a former smoker, when did you quit?: unk Cigars Per Day: 20 'Breaking Loose' booklet given: 01/10/16 Hx Alcohol Use: No Drug/Substance Use Hx: No Substance Use Type: None Hx Substance Use Treatment: No Review of Systems - Review of Systems Able to Perform ROS?: Yes Comments:: 06/18/18 08:13 CONSTITUTIONAL: Absent: fever, chills, diaphoresis, generalized weakness, malaise, loss of appetite HEENT: Absent: rhinorrhea, nasal congestion, throat pain, throat swelling, difficulty swallowing, mouth swelling, ear pain, eye pain, visual Changes CARDIOVASCULAR: Absent: chest pain, loss of consciousness, palpitations, irregular heart rate, peripheral edema RESPIRATORY: Present: difficulty breathing, shortness of breath cough, pleuritic chest pain Absent: dyspnea with exertion, orthopnea, wheezing, stridor, hemoptysis GASTROINTESTINAL: Absent: abdominal pain, abdominal distension, nausea, vomiting, diarrhea, constipation, melena, hematochezia GENITOURINARY: Absent: dysuria, frequency, urgency, hesitancy, hematuria, flank pain, genital pain MUSCULOSKELETAL: Absent: myalgia, arthralgia, joint swelling SKIN: Absent: rash, itching, pallor HEMATOLOGIC/IMMUNOLOGIC: Absent: easy bleeding, easy bruising, lymphadenopathy, frequent infections ENDOCRINE: Absent: unexplained weight gain, unexplained weight loss, heat intolerance, cold intolerance NEUROLOGIC: Absent: headache, focal weakness or paresthesias, dizziness, unsteady gait, seizure, mental status changes, bladder or bowel incontinence PSYCHIATRIC: Absent: anxiety, depression, suicidal or homicidal ideation, hallucinations. Is the patient limited Jamaican proficient: No *Physical Exam - Vital Signs Last Vital Signs Temp Pulse Resp BP Pulse Ox 98.2 F 101 H 17 128/95 93 L 06/18/18 08:00 06/18/18 08:00 06/18/18 08:00 06/18/18 08:00 06/18/18 08:00 - Physical Exam Comments: 06/18/18 08:15 GENERAL: Well developed, well nourished. Awake and alert. No acute distress. HEENT: Normocephalic, atraumatic. PERRLA, EOMI. No conjunctival pallor. Sclera are non- icteric. Moist mucous membranes. Oropharynx is clear. NECK: Supple. Full ROM. No JVD. Carotid pulses 2+ and symmetric, without bruits. No thyromegaly. No lymphadenopathy. CARDIOVASCULAR: Regular rate and rhythm. No murmurs, rubs, or gallops. Distal pulses are 2+ and symmetric. PULMONARY: No evidence of respiratory distress. Speaking in full sentences Scattered expiratory wheezing with fair aeration to the bases. No rales or rhonchi. EXTREMITIES: No cyanosis. No clubbing. No edema. No calf tenderness. SKIN: Warm and dry. Normal capillary refill. No rashes. No jaundice. NEUROLOGICAL: Alert, awake, appropriate. Cranial nerves 2-12 intact. No deficits to light touch and temperature in face, upper extremities and lower extremities. No motor deficits in the in face, upper extremities and lower extremities. Normoreflexic in the upper and lower extremities. Normal speech. Toes are down- going bilaterally. Gait is normal without ataxia. ED Treatment Course - LABORATORY CBC & Chemistry Diagram: 06/18/18 08:30 06/18/18 08:30 Medical Decision Making - Medical Decision Making 06/18/18 08:24 The patient is a 37-year-old female with past medical history of asthma, hypertension, who presents to the emergency department today for shortness of breath, cough and pleuritic chest pain for 2 days. Patient states that her symptoms are worse when she walks. She's been using her nebulizer treatments at home with some relief of her symptoms. She admits to feeling feverish yesterday however she did not take her temperature. Denies earache, sore throat, palpitations, swelling to the legs, nausea, vomiting, recent travel, control use. A/P: Shortness of breath/asthma exacerbation. On exam patient with scattered expiratory wheezes and decreased lung sounds at the bases. Triage vitals notable for O2 saturation of 93% Basic labs, urine, x-ray and EKG ordered at this time. IV fluids, steroids and DuoNeb's ordered for symptomatic relief. EKG: A 86 bpm, normal intervals and axis, no acute ST-T wave changes. Sinus rhythm Reevaluate 06/18/18 10:44 On chest x-ray, questionable infiltrate in the right lower lobe. Patient with leukocytosis to 15 Given x-ray and WBC count we'll treat for pneumonia Patient reports significant relief of symptoms after Decadron and DuoNeb's Repeat lung sounds now without wheezing and good aeration to the bases. CURB-65 Score is a 0 at this time Repeat O2 saturation now 98% Discharge home with outpatient antibiotics, steroids and nebulizers and PCP follow-up. I discussed the physical exam findings, ancillary test results and final diagnoses with the patient. I answered all of the patient's questions. The patient was satisfied with the care received and felt comfortable with the discharge plan and treatment plan. The Patient agrees to follow up with the primary care physician/specialist within 24-72 hours. Return precautions were given. *DC/Admit/Observation/Transfer Diagnosis at time of Disposition: Pneumonia Qualifiers: Pneumonia type: due to unspecified organism Laterality: right Lung location: lower lobe of lung Qualified Code(s): J18.1 - Lobar pneumonia, unspecified organism - Discharge Dispostion Disposition: HOME Condition at time of disposition: Stable Decision to Admit order: No - Prescriptions Prescriptions: Albuterol 0.083% Nebulizer Lorena [Ventolin 0.083% Nebulizer Soln -] 1 neb NEB Q4H #20 vial Azithromycin [Zithromax 250mg Tablets -] 250 mg PO UTDICT #6 tab Methylprednisolone [Medrol Dose Nikolai] 4 mg PO ASDIR #21 tablet - Referrals Referrals: Bala Mejia MD [Primary Care Provider] - Shy Valadez MD [Staff Physician] - - Patient Instructions Printed Discharge Instructions: DI for Pneumonia -- Adult Additional Instructions: You have pneumonia. Please take the antibiotics (azithromycin), as directed. Please take the steroid pack as directed. Use the nebulizer every 4 hours (albuterol) until her symptoms resolve. Do not use the inhaler if you're using the nebulizers it is the same medication. Please follow up with her primary care doctor within 2-3 days for further evaluation. Return to the ER for high fevers, difficulty breathing despite treatment, chest pain, or if you have any changes in your symptoms. - Post Discharge Activity Forms/Work/School Notes: Back to Work
[2018-06-18] MEDS ORDERED: SODIUM CHLORIDE 1,000 ML IV STA (08:20)
[2018-06-18] MEDS ORDERED: DEXAMETHASONE LIQUID 0.5 MG/5 ML 240 ML BULK BOTTLE PO ONE (08:20)
[2018-06-18] MEDS ORDERED: ALBUTEROL SO4 2.5/IPRATROPIUM 0.5 INH SOL 3 ML VIAL.NEB. NEB ONE ×3 (08:26→09:59)
[2018-06-18] MEDS ORDERED: DEXAMETHASONE SOD PHOSPHATE 10 MG/1 ML VIAL ONE (08:26)
[2018-06-18] MEDS ORDERED: DEXAMETHASONE SOD PHOSPHATE 10 MG/1 ML VIAL IVPUSH ONE (08:30)
[2018-06-18] MEDS: ALBUTEROL SO4 2.5/IPRATROPIUM 0.5 INH SOL 3 ML VIAL.NEB. NEB SCH ×4 (08:30→10:16)
[2018-06-18 09:11] LABS: BASO % 0.8 % (0-2.0); EOS % 4.1 % (0-4.5); HEMATOCRIT 40.8 % (32.4-45.2); HEMOGLOBIN 13.5 GM/dL (10.7-15.3); LYMPH % 15.4 % (8-40); MCH 26.6 pg (25.7-33.7); MCHC 33.2 g/dl (32.0-36.0); MEAN CELL VOLUME 80.3 fl (80-96); MEAN PLT VOLUME 9.5 fl (7.5-11.1); MONO % 5.6 % (3.8-10.2); NEUT % 74.1 % (42.8-82.8); PLATELET COUNT 239 K/MM3 (134-434); RBC 5.09 M/mm3 (3.60-5.2); RDW 15.5 % (11.6-15.6)
[2018-06-18 09:36] LABS: ALBUMIN 3.6 g/dl (3.4-5.0); ALK PHOS 149 U/L (45-117); ANION GAP 7 MMOL/L (8-16); BILIRUBIN,TOTAL 0.6 mg/dL (0.2-1); BLOOD UREA NITROGEN 11 mg/dL (7-18); CALCIUM 8.7 mg/dL (8.5-10.1); CHLORIDE 110 mmol/L (98-107); CO2 24 mmol/L (21-32); CREATININE 0.9 mg/dL (0.55-1.3); GLUCOSE,RANDOM 90 mg/dL (74-106); POTASSIUM 3.9 mmol/L (3.5-5.1); SGOT/AST 17 U/L (15-37); SGPT/ALT 25 U/L (13-61); SODIUM 141 mmol/L (136-145); TOT PROT 7.1 g/dl (6.4-8.2)
[2018-06-18 11:13] VITALS: BP 154/87; PULSE 94
--- NOTE | 2018-06-19 12:38 | EKG ---
Test Reason : Blood Pressure : / mmHG Vent. Rate : 086 BPM Atrial Rate : 086 BPM P-R Int : 170 ms QRS Dur : 084 ms QT Int : 352 ms P-R-T Axes : 061 049 028 degrees QTc Int : 421 ms NORMAL SINUS RHYTHM NORMAL ECG Confirmed by MD KEREN, ALLYSON ([id number]) on 06/19/2018 12:37:42 PM Referred By: Confirmed By:ALLYSON VELIZ MD
== END 2018-06-18 11:13 | disposition home or self-care (01) ==
LOC: JER 07:52
PROC: 3E0F7GC Introduction of Other Therapeutic Substance into Respiratory Tract, Via Natural or Artificial Opening (ICD-10-PCS; principal; 2018-06-18)
PROC: 3E0337Z Introduction of Electrolytic and Water Balance Substance into Peripheral Vein, Percutaneous Approach (ICD-10-PCS; 2018-06-18)
PROC: 3E0333Z Introduction of Anti-inflammatory into Peripheral Vein, Percutaneous Approach (ICD-10-PCS; 2018-06-18)
DX: J18.1 Lobar pneumonia, unspecified organism (principal); J45.909 Unspecified asthma, uncomplicated
CPT/HCPCS: 36415; 71046-TC-FY; 80053; 84703; 85025; 93005; 93010; 94640; 96361; 96374; 99285-25; J1100; J7030

== ENCOUNTER 2019-04-17 10:49 | Emergency (ER) | payer BC, OTHER ==
[2019-04-17 11:21] VITALS: BP 153/85; PULSE 89; TEMP 98.1; BMI 39.2
[2019-04-17] MEDS ORDERED: METOCLOPRAMIDE HCL INJECTION 10 MG/2 ML VIAL IVPB ONE (12:02)
[2019-04-17] MEDS ORDERED: ACETAMINOPHEN 1000 MG/100 ML VIAL (NON FORMULARY) IVPB ONE (12:02)
[2019-04-17] MEDS ORDERED: SODIUM CHLORIDE 0.9% 1000 ML INFUS.BAG IV ONE (12:02)
[2019-04-17] MEDS ORDERED: ACETAMINOPHEN INJECTION 100 ML IVPB ONE (13:27)
[2019-04-17] MEDS ORDERED: METOCLOPRAMIDE HCL INJECTION 10 MG/2 ML VIAL ONE (13:27)
[2019-04-17] MEDS ORDERED: DEXAMETHASONE SOD PHOSPHATE 4 MG/1 ML VIAL IVPUSH ONE (14:51)
--- NOTE | 2019-04-17 14:54 | PDOC ---
Documentation entered by Lesley Ramirez SCRIBE, acting as scribe for Zaid Vaz MD. Zaid Vaz MD: This documentation has been prepared by the James pringle Sammi, SCRIBE, under my direction and personally reviewed by me in its entirety. I confirm that the documentation accurately reflects all work, treatment, procedures, and medical decision making performed by me. History of Present Illness - General Chief Complaint: Migraine Headache Stated Complaint: HEADACHE History Source: Patient Exam Limitations: No Limitations - History of Present Illness Initial Comments: 04/17/19 11:58 The patient is a 38 year old female, with PMH of migraines (non-compliant with medication), asthma, HTN, who presents to the emergency department for evaluation of 3 days of worsening headache, 9/10 in severity, with associated nausea, noise and light sensitivity. The patient endorses tingling in bilateral hands and feet. She has been utilizing excedrin and advil with minor relief. She reports recent stress and lack of sleep. PCP: Jackie Neuro: [facility] Allergies: NKDA Past History - Past Medical History Allergies/Adverse Reactions: Allergies Allergy/AdvReac Type Severity Reaction Status Date / Time No Known Drug Allergies Allergy Verified 04/17/19 13:50 Home Medications: Ambulatory Orders Amlodipine Besylate [Norvasc -] 10 mg PO DAILY 01/10/16 Anemia: No Asthma: Yes Cancer: No Cardiac Disorders: No CVA: No COPD: No CHF: No DVT: No Dementia: No Diabetes: No GI Disorders: No Disorders: No HTN: Yes Hypercholesterolemia: No Liver Disease: No Seizures: No Thyroid Disease: No - Surgical History Abdominal Surgery: No Appendectomy: No Cardiac Surgery: No Cholecystectomy: No Lung Surgery: No Neurologic Surgery: No Orthopedic Surgery: Yes (RIGHT SHOULDER SURGERY) - Reproductive History (#): 2 Para: 1 Therapeutic (s) & number: Yes - Immunization History Immunization Up to Date: Yes - Psycho Social/Smoking Cessation Hx Smoking Status: Yes Smoking History: Never smoked Have you smoked in the past 12 months: Yes Number of Cigarettes Smoked Daily: 2 If you are a former smoker, when did you quit?: unk Cigars Per Day: 20 'Breaking Loose' booklet given: 01/10/16 Hx Alcohol Use: No Drug/Substance Use Hx: No Substance Use Type: None Hx Substance Use Treatment: No Review of Systems - Review of Systems Comments:: 04/17/19 11:59 Constitutional: No recent illness; no fever Cardiovascular: No palpitations; no chest pain Pulmonary: No cough; no trouble breathing Gastrointestinal: +nausea no vomiting; no diarrhea Skin: No rash Musculoskeletal: No joint swelling Neurological: +migraine +photophobia +hyperacusis. +tingling to bilateral hands and feet. No weakness; no numbness; no vertigo; no lightheadedness *Physical Exam - Vital Signs Last Vital Signs Temp Pulse Resp BP Pulse Ox 98.1 F 89 18 153/85 99 04/17/19 11:19 04/17/19 11:19 04/17/19 11:19 04/17/19 11:19 04/17/19 11:19 - Physical Exam 04/17/19 12:03 Vitals: Triage vital signs reviewed General Appearance: No acute distress, well nourished, well developed Neck: Supple; No nuchal rigidity Cardiac: Regular rate and rhythm, no murmurs, no rubs, no gallops Lungs: Clear to auscultation bilateral, good air movement bilaterally Abdomen: Soft, nondistended, normal bowel sounds, nontender to palpation Extremities: Full range of motion to all extremities, no cyanosis, clubbing, or edema Skin: Warm and dry, no rashes or lesions, no rash, no petechiae Neuro: AOX3; Cranial Nerves 2-12 grossly intact, Strength intact to all extremities, Sensation intact to all extremities, gait normal ED Treatment Course - RADIOLOGY Radiology Studies Ordered: Category Date Time Status HEAD CT WITHOUT CONTRAST [CT] Stat CT Scan 04/17/19 12:01 Completed - Medications Given in the ED: ED Medications Discontinued Medications Generic Name Dose Route Start Last Admin Trade Name Freq PRN Reason Stop Dose Admin Acetaminophen 1,000 mg 04/17/19 12:02 04/17/19 13:50 Ofirmev Injection - IVPB 04/17/19 12:03 1,000 mg ONCE ONE Administration Diphenhydramine HCl 25 mg 04/17/19 12:02 04/17/19 13:49 Benadryl Injection - IVPB 04/17/19 12:03 25 mg ONCE ONE Administration Metoclopramide HCl 10 mg 04/17/19 12:04/17/19 13:50 Reglan Injection - IVPB 04/17/19 12:03 10 mg ONCE ONE Administration Sodium Chloride 1,000 ml 04/17/19 12:02 04/17/19 13:49 Normal Saline - IV 04/17/19 12:03 1,000 ml ONCE ONE Administration Medical Decision Making - Medical Decision Making 04/17/19 14:52 38 years old with longstanding history of migraines approximately 1/month lasting 2 to 3 days of time presents with typical migraine not responding to her home medications no fever no neck stiffness no rash no travel Patient has seen a neurologist was prescribed migraine medications but has not started taking any Her neurologic examination was normal she received a migraine cocktail in the emergency department Reevaluation 245 patient feels much better pain is now 5 out of 10 will discharge with neuro follow-up Decadron prior to discharge to alleviate rebound headache Findings, the need for follow-up and strict return instructions discussed with patient. Discharge - Discharge Information Problems reviewed: Yes Clinical Impression/Diagnosis: Migraine Qualifiers: Migraine type: other Status migrainosus presence: without status migrainosus Intractability: not intractable Qualified Code(s): G43.809 - Other migraine, not intractable, without status migrainosus Condition: Good - Admission No - Follow up/Referral Referrals: Bala Mejia MD [Primary Care Provider] - Giovanny Dennis MD [Staff Physician] - - Patient Discharge Instructions Patient Printed Discharge Instructions: Migraine -- Adult Additional Instructions: Drink plenty of fluids. [id number] Tylenol Motrin as prescribed. Follow- up with your neurologist this week. Return to the emergency department for any fever severe worsening symptoms or for any concerns. - Post Discharge Activity Work/Back to School Note: Back to Work
[2019-04-17] MEDS ORDERED: DEXAMETHASONE SOD PHOSPHATE 4 MG/1 ML VIAL ONE (16:00)
--- NOTE | 2019-04-19 11:56 | EKG ---
Test Reason : Blood Pressure : / mmHG Vent. Rate : 075 BPM Atrial Rate : 075 BPM P-R Int : 164 ms QRS Dur : 082 ms QT Int : 362 ms P-R-T Axes : 025 026 020 degrees QTc Int : 404 ms NORMAL SINUS RHYTHM WHEN COMPARED WITH ECG OF 18-JUN-2018 07:59, NO SIGNIFICANT CHANGE WAS FOUND Confirmed by LYNDSEY KELLY MD ([id number]) on 04/19/2019 11:56:03 AM Referred By: Confirmed By:LYNDSEY KELLY MD
== END 2019-04-17 16:21 | disposition home or self-care (01) ==
LOC: JER 10:49
PROC: 3E033NZ Introduction of Analgesics, Hypnotics, Sedatives into Peripheral Vein, Percutaneous Approach (ICD-10-PCS; principal; 2019-04-17)
PROC: 3E033GC Introduction of Other Therapeutic Substance into Peripheral Vein, Percutaneous Approach (ICD-10-PCS; 2019-04-17)
DX: G43.809 Other migraine, not intractable, without status migrainosus (principal); I10 Essential (primary) hypertension; J45.909 Unspecified asthma, uncomplicated
CPT/HCPCS: 70450-TC; 93005; 93010; 99285-25; J0131; J7030

== ENCOUNTER 2021-08-23 14:55 | Emergency (ER) | payer BC ==
[2021-08-23 15:46] VITALS: TEMP 98.6; BMI 40.4
[2021-08-23] MEDS ORDERED: ALBUTEROL SO4 2.5/IPRATROPIUM 0.5 INH SOL 3 ML VIAL.NEB. NEB ONE ×2 (16:48→16:58)
[2021-08-23] MEDS ORDERED: DEXAMETHASONE SOD PHOSPHATE 10 MG/1 ML VIAL IM ONE (16:48)
[2021-08-23] MEDS ORDERED: DEXAMETHASONE SOD PHOSPHATE 10 MG/1 ML VIAL ONE (16:59)
[2021-08-23 18:28] VITALS: BP 149/90; PULSE 119
== END 2021-08-23 18:20 | disposition home or self-care (01) ==
LOC: JER 14:55
PROC: 3E023GC Introduction of Other Therapeutic Substance into Muscle, Percutaneous Approach (ICD-10-PCS; principal; 2021-08-23)
PROC: 3E0F7GC Introduction of Other Therapeutic Substance into Respiratory Tract, Via Natural or Artificial Opening (ICD-10-PCS; 2021-08-23)
DX: J45.909 Unspecified asthma, uncomplicated (principal)
CPT/HCPCS: 0241U-QW; 71046-TC-FY; 93005; 93010; 99285-25; J1100

== ENCOUNTER 2021-09-03 01:52 | Observation (INO) | payer BC ==
[2021-09-03] MEDS ORDERED: MAGNESIUM SULF 50% (8.12 MEQ/2 ML-1 GM VIAL) IVPB ONE (02:15)
[2021-09-03] MEDS ORDERED: DEXAMETHASONE SOD PHOSPHATE 10 MG/1 ML VIAL IVPUSH ONE (02:15)
[2021-09-03] MEDS ORDERED: DEXAMETHASONE SOD PHOSPHATE 10 MG/1 ML VIAL ONE (02:23)
[2021-09-03] MEDS: ALBUTEROL SO4 2.5/IPRATROPIUM 0.5 INH SOL 3 ML VIAL.NEB. NEB SCH ×4 (02:25→02:56)
[2021-09-03] MEDS ORDERED: MAGNESIUM SULFATE IN WATER 2 GM/50 ML IVPB IVPB ONE (02:48)
[2021-09-03] MEDS ORDERED: ALBUTEROL SO4 0.083% IH SOL 2.5 MG/3 ML VIAL.NEB. NEB ONE ×4 (03:29→15:43)
[2021-09-03 06:54] LABS: HEMATOCRIT 39.2 % (32.4-45.2); HEMOGLOBIN 12.8 GM/dL (10.7-15.3); MCH 26.2 pg (25.7-33.7); MCHC 32.8 g/dl (32.0-36.0); MEAN PLT VOLUME 8.7 fl (7.5-11.1); PLATELET COUNT 219 10^3/uL (134-434); RDW 16.4 % (11.6-15.6); WHITE BLOOD COUNT 24.4 K/mm3 (4.0-10.0)
[2021-09-03 06:58] LABS: ALBUMIN 3.3 g/dl (3.4-5.0); BLOOD UREA NITROGEN 8.9 mg/dL (7-18); CALCIUM 8.3 mg/dL (8.5-10.1); MAGNESIUM 2.2 mg/dL (1.8-2.4)
[2021-09-03 07:01] LABS: CREATININE 0.9 mg/dL (0.55-1.3)
[2021-09-03 07:03] LABS: BILIRUBIN,TOTAL 0.4 mg/dL (0.2-1); TOT PROT 6.9 g/dl (6.4-8.2)
[2021-09-03 09:18] LABS: ANISOCYTOSIS 0; MACROCYTOSIS 0
[2021-09-03] MEDS ORDERED: AZITHROMYCIN IVPB 500 MG/250 ML BAG IVPB ONE ×2 (10:06→10:18)
[2021-09-03] MEDS ORDERED: LISINOPRIL 5 MG TABLET ONE (10:17)
[2021-09-03] MEDS ORDERED: amLODIPine BESYLATE 10 MG TABLET (FP) ONE (10:17)
[2021-09-03] MEDS ORDERED: CEFTRIAXONE 1 GM/50 ML BAG ONE (10:18)
[2021-09-03] MEDS: LISINOPRIL 5 MG TABLET PO SCH (10:35)
[2021-09-03] MEDS: CEFTRIAXONE 1 GM in DEXTROSE 5%-WATER - 50 ML IVPB SCH (10:35)
[2021-09-03] MEDS: amLODIPine BESYLATE 10 MG TABLET (FP) PO SCH (10:35)
[2021-09-03] MEDS ORDERED: ALBUTEROL SO4 0.083% IH SOL 2.5 MG/3 ML VIAL.NEB. NEB SCH (12:00)
[2021-09-03 12:22] LABS: EPI CELLS 2 /uL (0-25.1); HYALINE CASTS 0 /uL (0-3.1); URINE APPEARANCE CLEAR; URINE BACTERIA 27 /uL (0-1359); URINE BILIRUBIN NEGATIVE (NEGATIVE); URINE COLOR YELLOW; URINE GLUCOSE (UA) 3+ (NEGATIVE); URINE KETONE TRACE (NEGATIVE); URINE LEUK ESTERASE NEGATIVE (NEGATIVE); URINE NITRITE NEGATIVE (NEGATIVE); URINE PROTEIN 1+ (NEGATIVE); URINE RBC 6 /uL (0-23.9); URINE UROBILINOGEN 0.2 mg/dL (0.2-1.0); URINE WBC 1 /uL (0-25.8)
[2021-09-03] MEDS ORDERED: PANTOPRAZOLE 20 MG TABLET PO ONE (15:37)
[2021-09-03] MEDS: PANTOPRAZOLE 20 MG TABLET PO SCH (15:40)
[2021-09-03] MEDS ORDERED: ALBUTEROL SO4 0.083% IH SOL 2.5 MG/3 ML VIAL.NEB. NEB PRN (16:08)
[2021-09-03] MEDS ORDERED: methylPREDNISolone NA SUCC 40 MG/1 ML VIAL ONE (18:31)
[2021-09-03] MEDS: methylPREDNISolone NA SUCC 40 MG/1 ML VIAL IVPUSH SCH (18:41)
[2021-09-03] MEDS: MONTELUKAST NA 10 MG TABLET PO SCH (21:32)
[2021-09-03 23:05] VITALS: BMI 41.3
[2021-09-04] MEDS: methylPREDNISolone NA SUCC 40 MG/1 ML VIAL IVPUSH SCH ×2 (01:03→09:50)
[2021-09-04] MEDS ORDERED: cefTRIAXone SODIUM 1 GM VIAL ONE (09:47)
[2021-09-04] MEDS ORDERED: DEXTROSE 5%-WATER - 50 ML IVPB ONE (09:47)
[2021-09-04] MEDS: amLODIPine BESYLATE 10 MG TABLET (FP) PO SCH (09:49)
[2021-09-04] MEDS: CEFTRIAXONE 1 GM in DEXTROSE 5%-WATER - 50 ML IVPB SCH (09:49)
[2021-09-04] MEDS: ENOXAPARIN NA (PORCINE) 40 MG/0.4 ML DISP.SYRIN SQ SCH (09:49)
[2021-09-04] MEDS: LISINOPRIL 5 MG TABLET PO SCH (09:49)
[2021-09-04] MEDS ORDERED: AZITHROMYCIN IVPB 250 MG in DEXTROSE 5%-WATER - 250 ML IVPB SCH (10:00)
[2021-09-04 10:11] LABS: HEMATOCRIT 39.2 % (32.4-45.2); HEMOGLOBIN 12.7 GM/dL (10.7-15.3); MCH 26.2 pg (25.7-33.7); MCHC 32.2 g/dl (32.0-36.0); MEAN CELL VOLUME 81.3 fl (80-96); MEAN PLT VOLUME 9.6 fl (7.5-11.1); PLATELET COUNT 237 10^3/uL (134-434); RBC 4.83 M/mm3 (3.60-5.2); RDW 16.5 % (11.6-15.6); WHITE BLOOD COUNT 31.5 K/mm3 (4.0-10.0)
[2021-09-04] MEDS: PANTOPRAZOLE 20 MG TABLET PO SCH (10:14)
[2021-09-04 10:29] LABS: BLOOD UREA NITROGEN 12.9 mg/dL (7-18); CALCIUM 8.8 mg/dL (8.5-10.1)
[2021-09-04 10:30] LABS: ALBUMIN 3.3 g/dl (3.4-5.0)
[2021-09-04 10:34] LABS: BILIRUBIN,TOTAL 0.7 mg/dL (0.2-1)
[2021-09-04 11:06] LABS: ANISOCYTOSIS 0; HELMET CELLS 0; HOWELL-JOLLY BODIES 0; MACROCYTOSIS 0; OVALOCYTE 0; ROULEAU 0; SICKELED CELLS 0; TARGET CELLS 0; TEAR DROP CELLS 0; TOXIC GRANULATION 0
[2021-09-04] MEDS: ALBUTEROL SO4 0.083% IH SOL 2.5 MG/3 ML VIAL.NEB. NEB SCH ×4 (11:40→20:05)
[2021-09-04] MEDS: POLYETHYLENE GLYCOL (HEALTHYLAX) 3350 17 GM PACKET PO SCH (12:18)
[2021-09-04] MEDS ORDERED: NYSTATIN POWDER 100,000 UNITS/GM - 15 GM TOPICAL POWDER TP ONE (13:30)
[2021-09-04] MEDS ORDERED: methylPREDNISolone NA SUCC 40 MG/1 ML VIAL IVPUSH SCH (18:00)
[2021-09-04] MEDS: NYSTATIN 100,000 UNIT/GM TOPICAL CREAM 15 GM TUBE TP SCH (21:59)
[2021-09-04] MEDS: MONTELUKAST NA 10 MG TABLET PO SCH (21:59)
[2021-09-04] MEDS: BUDESONIDE/FORMETEROL FUMARATE 160/4.5 mcg INHALER IH SCH (21:59)
[2021-09-05] MEDS: ALBUTEROL SO4 0.083% IH SOL 2.5 MG/3 ML VIAL.NEB. NEB SCH ×3 (07:20→20:27)
[2021-09-05 08:43] LABS: HEMATOCRIT 39.2 % (32.4-45.2); HEMOGLOBIN 12.7 GM/dL (10.7-15.3); MCH 26.2 pg (25.7-33.7); MCHC 32.3 g/dl (32.0-36.0); MEAN PLT VOLUME 9.2 fl (7.5-11.1); PLATELET COUNT 275 10^3/uL (134-434); RBC 4.83 M/mm3 (3.60-5.2); RDW 16.1 % (11.6-15.6)
[2021-09-05 09:01] LABS: CALCIUM 9.1 mg/dL (8.5-10.1)
[2021-09-05 09:02] LABS: ALBUMIN 3.2 g/dl (3.4-5.0); BLOOD UREA NITROGEN 13.8 mg/dL (7-18); CREATININE 0.9 mg/dL (0.55-1.3)
[2021-09-05 09:03] LABS: BILIRUBIN,TOTAL 0.4 mg/dL (0.2-1); TOT PROT 6.9 g/dl (6.4-8.2)
[2021-09-05] MEDS: AZITHROMYCIN 250 MG TABLET PO SCH (09:32)
[2021-09-05] MEDS: PANTOPRAZOLE 20 MG TABLET PO SCH (09:32)
[2021-09-05] MEDS: amLODIPine BESYLATE 10 MG TABLET (FP) PO SCH (09:32)
[2021-09-05] MEDS: POLYETHYLENE GLYCOL (HEALTHYLAX) 3350 17 GM PACKET PO SCH (09:32)
[2021-09-05] MEDS: LISINOPRIL 5 MG TABLET PO SCH (09:33)
[2021-09-05] MEDS: ENOXAPARIN NA (PORCINE) 40 MG/0.4 ML DISP.SYRIN SQ SCH (09:35)
[2021-09-05] MEDS: BUDESONIDE/FORMETEROL FUMARATE 160/4.5 mcg INHALER IH SCH ×2 (10:16→22:10)
[2021-09-05] MEDS: NYSTATIN 100,000 UNIT/GM TOPICAL CREAM 15 GM TUBE TP SCH ×2 (10:16→22:10)
[2021-09-05 10:39] LABS: ANISOCYTOSIS 0; HELMET CELLS 0; HOWELL-JOLLY BODIES 0; MACROCYTOSIS 0; OVALOCYTE 0; ROULEAU 0; SICKELED CELLS 0; TARGET CELLS 0; TEAR DROP CELLS 0; TOXIC GRANULATION 0
[2021-09-05] MEDS ORDERED: guaiFENesin 200 MG/10 ML 10 ML UNIT-DOSE CUPS PO PRN (16:51)
[2021-09-05] MEDS: MONTELUKAST NA 10 MG TABLET PO SCH (22:10)
[2021-09-06] MEDS: ALBUTEROL SO4 0.083% IH SOL 2.5 MG/3 ML VIAL.NEB. NEB SCH ×2 (07:50→13:10)
[2021-09-06] MEDS: LISINOPRIL 5 MG TABLET PO SCH (09:30)
[2021-09-06] MEDS: POLYETHYLENE GLYCOL (HEALTHYLAX) 3350 17 GM PACKET PO SCH (09:30)
[2021-09-06] MEDS: ENOXAPARIN NA (PORCINE) 40 MG/0.4 ML DISP.SYRIN SQ SCH (09:30)
[2021-09-06] MEDS: PANTOPRAZOLE 20 MG TABLET PO SCH (09:30)
[2021-09-06] MEDS: NYSTATIN 100,000 UNIT/GM TOPICAL CREAM 15 GM TUBE TP SCH (09:31)
[2021-09-06] MEDS: amLODIPine BESYLATE 10 MG TABLET (FP) PO SCH (09:31)
[2021-09-06] MEDS: BUDESONIDE/FORMETEROL FUMARATE 160/4.5 mcg INHALER IH SCH (09:32)
[2021-09-06] MEDS: AZITHROMYCIN 250 MG TABLET PO SCH (09:34)
[2021-09-06] MEDS ORDERED: methylPREDNISolone NA SUCC 40 MG/1 ML VIAL IVPUSH SCH (10:00)
[2021-09-06] MEDS ORDERED: predniSONE 20 MG TABLET (UD) PO SCH (10:30)
[2021-09-06 10:56] LABS: EOS % 4.4 % (0-4.5); HEMOGLOBIN 13.2 GM/dL (10.7-15.3); LYMPH % 24.2 % (8-40); MCH 26.1 pg (25.7-33.7); MCHC 32.2 g/dl (32.0-36.0); MEAN CELL VOLUME 81.1 fl (80-96); MONO % 5.6 % (3.8-10.2); NEUT % 64.8 % (42.8-82.8); PLATELET COUNT 278 10^3/uL (134-434); RBC 5.06 M/mm3 (3.60-5.2); RDW 16.3 % (11.6-15.6); WHITE BLOOD COUNT 19.9 K/mm3 (4.0-10.0)
[2021-09-06 11:23] LABS: BLOOD UREA NITROGEN 12.2 mg/dL (7-18); CALCIUM 8.6 mg/dL (8.5-10.1)
[2021-09-06 11:26] LABS: BILIRUBIN,TOTAL 0.4 mg/dL (0.2-1)
[2021-09-06 15:10] VITALS: TEMP 97.8
[2021-09-06] MEDS ORDERED: LISINOPRIL 5 MG TABLET PO ONE (15:24)
[2021-09-06 16:31] VITALS: BP 142/79; PULSE 101
== END 2021-09-06 17:37 | disposition home or self-care (01) ==
LOC: JER 01:52 → JERBED 08:29 → J6S 19:56
PROVIDERS: ADMIT Internal Medicine; ATTEND Internal Medicine
PROC: 3E0F7GC Introduction of Other Therapeutic Substance into Respiratory Tract, Via Natural or Artificial Opening (ICD-10-PCS; principal; 2021-09-03)
PROC: 3E03329 Introduction of Other Anti-infective into Peripheral Vein, Percutaneous Approach (ICD-10-PCS; 2021-09-03)
PROC: 3E023GC Introduction of Other Therapeutic Substance into Muscle, Percutaneous Approach (ICD-10-PCS; 2021-09-03)
DX: J44.9 Chronic obstructive pulmonary disease, unspecified (principal); E66.01 Morbid (severe) obesity due to excess calories; Z68.41 Body mass index [BMI] 40.0-44.9, adult; D72.829 Elevated white blood cell count, unspecified; R05.9 Cough, unspecified; I10 Essential (primary) hypertension; G47.30 Sleep apnea, unspecified; J40 Bronchitis, not specified as acute or chronic; Z72.0 Tobacco use; J45.901 Unspecified asthma with (acute) exacerbation; G47.33 Obstructive sleep apnea (adult) (pediatric)
CPT/HCPCS: 0241U-QW; 36415; 71046-TC-FY; 71250-TC; 80048; 80053; 81003; 83735; 84484; 85025; 87040; 87086; 87899; 88300-TC; 93005; 93010; 94010; 94640; 96365; 96366; 96367; 96372; 96375; 99285-25; C9803-CS; G0378; J1100; U0003; U0005